=== PATIENT | male | born 1960 | race Caucasian/White ===

== ENCOUNTER 2021-08-01 19:12 | Emergency (ER) | payer MEDICARE, OTHER ==
[~2021-08-01] VITALS: Ht 175.3 cm; Wt 105.2 kg
[~2021-08-01 19:12] MED LIST: ALLOPURINOL 10100 M1 PO; ASPIR 8181 MG PO; LIPITOR 20 MG T20 M1 PO; LIPITOR10 MG PO; MYFORTIC180 MG PO; MYFORTIC360 MG PO; NORVASC10 MG PO; PREDNISOLONE 5 M5 MG PO; PRILOSEC 20 MG20 MG PO; PROGRAF1 MG PO; VITAMIN D2000 UNIT PO
[2021-08-01 19:53] LABS: HEMATOCRIT 27.9 % (42.0-52.0); MCH 25.9 pg (26.0-34.0); MCHC 32.2 g/dL (28.0-37.0); MCV 80.2 fL (80.0-100.0); MPV 7.9 fl. (7.2-11.1); NUCLEATED RBCS 0 /100WBC; PLATELET COUNT* 181 thou/uL (150-400); RBC 3.48 mil/uL (4.50-6.00); RDW-CV 15.1 % (10.5-14.5); WBC 8.7 thou/uL (4.0-11.0)
[2021-08-01 20:03] LABS: CREATININE 7.6 mg/dL (0.6-1.3)
[2021-08-01 20:13] LABS: MAGNESIUM 2.6 mg/dL (1.8-2.4); TOTAL BILIRUBIN 0.9 mg/dL (<0.1-1.0); TOTAL PROTEIN 6.7 g/dL (6.4-8.2)
[2021-08-01 20:17] LABS: BE -13.7 mmol/L (-2 to +3); pH 7.314 (7.340-7.450)
[2021-08-01 20:22] LABS: PO2 299.8 mmHg (75.0-100.0)
[2021-08-01 20:37] LABS: ABSOLUTE LYMPHOCYTES 0.1 thou/uL (0.8-5.3); ABSOLUTE MONOCYTES 0.2 thou/uL (0.0-1.2); ABSOLUTE NEUTROPHILS 8.4 thou/uL (1.6-8.1); PLATELET ESTIMATE ADEQUATE
[2021-08-01 20:38] LABS: POLYCHROMASIA Occasional
[2021-08-01 20:39] LABS: ANISOCYTOSIS Occasional; LARGE PLATELETS RARE
[2021-08-01 20:50] LABS: PROTIME 10.3 Seconds (9.20-11.50)
[2021-08-01 21:01] LABS: INFLUENZA A ANTIGEN Negative (Negative); INFLUENZA B ANTIGEN Negative (Negative)
[2021-08-02 00:30] VITALS: BP 91/48
--- NOTE | 2021-08-02 09:39 | EKG ---
[place] [address] ELECTROCARDIOGRAM REPORT Name: SHAUN FRANKS Room: 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: : [id number] Requested By: Breann Bautista Order Number: [id number] MD: Marlo Luna Measurements Intervals Simpson Rate: 46 P: [place]: QRS: -34 QRSD: 121 T: 41 QT: 556 QTc: 487 Interpretive Statements Sinus bradycardia Nonspecific intraventricular conduction delay Artifact in lead(s) I,II,III,aVR,aVL,aVF,V1,V2 and baseline wander in lead(s) V1,V4 Compared to ECG 03/08/2016 22:56:01 Sinus rate has slowed Intraventricular conduction delay now present Ventricular premature complex(es) no longer present Electronically Signed On 08-02-2021 9:39:02 DIETITIAN CHIEF by Marlo Luna [email or web address] <ELECTRONICALLY SIGNED> By: Marlo Luna MD, [facility] 08/02/21938 19 19 Marlo Luna MD, [facility] /EPI
== END 2021-08-02 00:30 | disposition short-term general hospital (02) ==
LOC: M.ERS 19:12
PROVIDERS: Emergency Medicine
DX: U07.1 COVID-19 (principal); N17.9 Acute kidney failure, unspecified; I10 Essential (primary) hypertension; E11.9 Type 2 diabetes mellitus without complications; Z79.899 Other long term (current) drug therapy; Z87.891 Personal history of nicotine dependence